=== PATIENT | female | born 1980 | race Caucasian/White ===

== ENCOUNTER 2017-08-08 00:43 | Emergency (ER) | payer OTHER, SELFPAY ==
[2017-08-08 00:44] VITALS: BP 121/81; PULSE 105; RESP 20; TEMP 37.7; O2SAT 98; BMI 36.3
--- NOTE | 2017-08-08 01:14 | CT_ITS ---
STUDY: CT ABDOMEN AND PELVIS WITHOUT CONTRAST REASON FOR EXAM: Female, 36 years old. LEFT flank pain RADIATION DOSAGE (If Supplied By Facility): CTDIvol = ( 16.52 ) mGy, DLP = ( 817.26 ) mGycm TECHNIQUE: Transaxial images were obtained from the dome of the diaphragm to the symphysis pubis without oral contrast, and without intravenous contrast. Sagittal and coronal images were reconstructed. Individualized dose optimization techniques were used for this CT. COMPARISON: None. FINDINGS: The visualized lung bases are unremarkable. The visualized portions of the heart are within normal limits. Normal liver. Normal gallbladder and extrahepatic biliary system. Normal spleen. Normal pancreas. Normal bilateral adrenal glands. Normal right kidney. There is mild LEFT hydronephrosis and hydroureter. NO stones are seen. A stone may have recently passed. The findings may also be due to urinary tract infection. Normal visualized stomach. Normal small intestine. Normal colon. The appendix is visualized and appears normal. Normal abdominal aorta. Normal inferior vena cava. Normal retroperitoneum. Normal urinary bladder. Uterus and ovaries are unremarkable. There is NO ascites, free air, abscess or adenopathy. Normal abdominal wall. Normal osseous structures. CT/Abdomen/Pelvis without Cont IMPRESSION: There is mild LEFT hydronephrosis and hydroureter. NO stones are seen. A stone may have recently passed. The findings may also be due to urinary tract infection. Normal visualized stomach. Normal small intestine. Normal colon. The appendix is visualized and appears normal. Uterus and ovaries are unremarkable. There is NO ascites, free air, abscess or adenopathy. Electronically Signed: Gary Kulkarni MD at 2:24 EDT , Service support ,
--- NOTE | 2017-08-08 01:17 | ED.VISSUMM ---
- ER Visit Summary Date of Service: 08/08/17 Chief Complaint: Left flank pain History of Present Illness: The patient is a 36 F left flank pain. It started intermittently yesterday and then became more severe today. Associated with chills and nausea. No dysuria or hematuria. She does have a history of kidney stones. Physical Examination: Afebrile and vital signs unremarkable except for a heart rate of 105. She appears uncomfortable but not toxic or in distress. Left CVA is tender and left flank is tender. No guarding or rebound. Skin appears normal. No other pertinent findings. Test Results: Blood work, urinalysis, and CT pending. Emergency Department Course and Treatment: Patient treated with fluids, morphine, and Zofran while awaiting results. Count 11.7. Metabolic panel normal. Urinalysis showed signs of infection. Culture is pending. test negative. CT showed mild left hydronephrosis with no stones. No other significant findings. Patient likely has pyelonephritis. She may have also passed a small stone recently. Cultures pending. She was given a dose of Rocephin. Will prescribe Cipro. We will also prescribe medicine for pain and nausea. No active meds on OARRS. Follow-up with primary care. I advised her that sometimes this condition can require hospitalization. If she does have new or worsening issues, she should return. Treatment Plan: As above Disposition: Discharged Impression: 1. Acute left pyelonephritis This note was generated with [employer] dictation software. It may contain incorrect words, spelling, and punctuation that were not noted in review of the chart prior to signing ED Disposition - Plan for ED Patient: Disposition: Home or Assisted Living Chief Complaint: Flank Pain Instructions: Discharge Instructions for Pyelonephritis Prescriptions: Oxycodone HCl/Acetaminophen [Percocet 5/325] 1 tab PO Q6H PRN PRN 3 Days #12 tab PRN Reason: Pain Ondansetron [Zofran Odt] 4 mg PO Q8H PRN PRN #10 tab PRN Reason: Nausea Ciprofloxacin [Cipro] 500 mg PO BID #20 tab Referrals: Dirk Navarro DO [Primary Care Provider] -
[2017-08-08] MEDS: Morphine 4 MG/ML Syringe IV (01:33)
[2017-08-08 01:34] LABS: Absolute Lymphocyte Count 2.26 X10^3/ul (0.83-4.51); Absolute Neutrophil Count 7.9 X10^3/uL (2.0-7.7); Basophil# 0.05 X10^3/uL; Basophil% 0.4 % (0-1); Eosinophils% 1.7 % (0-5); Hematocrit 41.2 % (37-47); Hemoglobin 13.5 g/dl (12.0-15.0); Lymphocyte # 2.26 X10^3/ul (4.0); Lymphocyte % 19.4 % (19-41); Mean Corp Hgb Conc 32.8 g/gl (32-36); Mean Corpuscular Hgb 29.3 pg (27.0-32.0); Mean Corpuscular Volume 89.4 fL (81-99); Monocyte# 1.18 X10^3/uL; Monocyte% 10.1 % (0-10); Neutrophil % 67.8 % (47-70); POSITIVE COUNT NO; POSITIVE DIFFERENTIAL NO; POSITIVE MORPHOLOGY NO; Platelet Count 269 K/mm3 (150-450); RBC Distribution Width CV 12.8 % (11.6-14.6); RBC Distribution Width SD 41.6 fl (35.1-43.9); Red Blood Count 4.61 M/mm3 (4.2-5.4); White Blood Count 11.7 K/mm3 (4.4-11.0)
[2017-08-08] MEDS: 0.9% Normal Saline 1,000 ML 250 ML IV (01:34)
[2017-08-08] MEDS: Ondansetron 4 MG/2 ML Vial IV (01:34)
[2017-08-08 01:48] LABS: Anion Gap 9 (5-15); BUN 8 mg/dL (7-18); BUN/Creat Ratio 9.7 RATIO (10-20); Calcium,Total 8.3 mg/dL (8.5-10.1); Chloride 105 mmol/L (98-107); Creatinine, Serum 0.83 mg/dL (0.55-1.02); EST Glomerular Filtration Rate 83 mL/min (>60); Est Glom Filt Rate - Afr Amer 100 mL/min (>60); Estimated Creatinine Clearance 77.51 ml/min; Glucose 106 mg/dL (74-106); Potassium 3.6 mmol/L (3.5-5.1); Sodium Level 138 mmol/L (136-145)
[2017-08-08 01:52] LABS: Pregnancy, Serum, hCG Quali. NEGATIVE Negative (0-9 Nonpreg)
[2017-08-08 01:56] LABS: Bacteria 0 SEEN /hpf (None Seen); Color, Urine Yellow (Yellow); Glucose, Dipstick Normal (Normal); Ketone-Dipstick Negative (Negative); Leukocyte Esterase-Dipstick 100 /ul (Negative); Nitrite-Dipstick Negative (Negative); Occult Blood-Urine 150 /ul (Negative); Protein-Dipstick 30 mg/dl (Negative); Urine Bilirubin Dipstick Negative (Negative); Urine Clarity Sl. Cloudy (Clear); Urine Urobilinogen 1 mg/dl (Normal)
[2017-08-08 02:01] LABS: Mucous, Urine 2+ /hpf (<or=2+); Red Blood Cells-Urine 5-10 SEEN /hpf (0-5); Squamous Epithelial Cells - UA 5-10 SEEN /hpf (5-10); White Blood Cells 10-25 SEEN /hpf (0-5)
--- NOTE | 2017-08-08 02:46 | ED.DEP ---
ED Disposition - Plan for ED Patient: Chief Complaint: Flank Pain Instructions: Discharge Instructions for Pyelonephritis Prescriptions: Oxycodone HCl/Acetaminophen [Percocet 5/325] 1 tab PO Q6H PRN PRN 3 Days #12 tab PRN Reason: Pain Ondansetron [Zofran Odt] 4 mg PO Q8H PRN PRN #10 tab PRN Reason: Nausea Ciprofloxacin [Cipro] 500 mg PO BID #20 tab Referrals: Dirk Navarro DO [Primary Care Provider] -
[2017-08-08] MEDS: Ceftriaxone 1 GM/50 ML BAG IV (02:56)
[2017-08-08] MEDS: HYDROcodone Bitartrate/Apap 5/325 Tablet PO (03:01)
[2017-08-08 03:45] VITALS: BP 104/56; PULSE 98; RESP 16; O2SAT 95
== END 2017-08-08 03:45 | disposition home or self-care (01) ==
PROVIDERS: Emergency Provider Emergency Medicine; Family Provider Family Medicine; PCP Family Medicine
DX: N10 Acute pyelonephritis (principal); N13.30 Unspecified hydronephrosis; Z87.442 Personal history of urinary calculi; Z72.0 Tobacco use
CPT/HCPCS: 74176; 80048; 81001; 84703; 85025; 87086; 87088; 87186; 96361; 96365; 96375; 99284; J7030; A4216; J2405

== ENCOUNTER → 2018-03-12 16:45 | Outpatient (CLI) | payer OTHER, SELFPAY ==
[2018-03-12 20:17] LABS: Chlamydia Trachomatis by PCR Negative (Negative); Neisserai gonorrhoeae by PCR Negative (Negative); Probe Check PASS; Sample Adequacy Control PASS; Specimen Processing Control PASS
[2018-03-16 12:12] LABS: HPV Reflexed? NOT INDICATED
== END ==
PROVIDERS: Visit Provider Obstetrics & Gynecology
DX: Z12.72 Encounter for screening for malignant neoplasm of vagina (principal); Z12.4 Encounter for screening for malignant neoplasm of cervix; Z11.3 Encounter for screening for infections with a predominantly sexual mode of transmission
CPT/HCPCS: 87491; 87591; 88175; G0145

== ENCOUNTER 2018-08-27 19:15 | Emergency (ER) | payer OTHER, SELFPAY ==
[2018-07-17 14:55] VITALS: BMI 26.2
[2018-08-27 19:15] VITALS: BP 127/82; PULSE 123; RESP 16; TEMP 36.3; O2SAT 98; BMI 26.3
--- NOTE | 2018-08-27 19:35 | ED.DCSUM_ITS ---
- ER Visit Summary Date of Service: 08/27/18 Chief Complaint: [Headache] History of Present Illness: The patient is a 37 F [presents the emergency department complaint of a headache that started around 8 AM. Patient states the headache came on gradually. She denies any falls or head injuries. He describes it as throbbing above her right eye. Patient had nausea but no vomiting. She denies any photophobia. She denies recent illness and has not had a fever. She denies urinary symptoms. Patient states she tried Tylenol at home without relief. She did not try ibuprofen because she has anaphylaxis type reaction with NSAIDs. Patient states that she is currently getting hormone therapy as she will be undergoing in vitro fertilization. Patient is wondering if the headache is unrelated to her hormones. She has had headaches in the past that were described as migraines but not for quite some time she states.] Physical Examination: [HEENT-PERRLA, EOMI. Cranial nerves II through XII grossly intact. TMs clear. Mucous membranes moist. No adenopathy. Cardiovascular-regular rate and rhythm without murmur or ectopy Lungs-clear to auscultation, chest wall stable without crepitus or subcu emphysema Abdomen-normoactive bowel sounds, soft, nontender, no rebound or rigidity, no peritoneal signs. Neuro fiql-vshkkf-ibes and uirz-ds-ybtk testing within normal limits, negative Romberg, negative , Fundi benign. Extremities-intact ?4, normal range of motion, normal pulses, atraumatic] Test Results: [CT scan of the brain without contrast was normal] Emergency Department Course and Treatment: [IV line established was given liter normal same fluid bolus as well as Reglan and Benadryl.] Patient did have some pain improvement and rates her pain now a 5 out of 10. Patient was given Nubain 10 mg IV and now she states her headaches significantly improved and feels she would like to go home. Treatment Plan: [Patient to follow-up with her primary care physician within next 3 to 5 days. Patient advised to drink plenty of fluids and sleep. Patient advised to return if worsening pain, difficulty with balance or speech, or condition should worsen anyway. ] Disposition: [Discharged home stable condition] Impression: [Cephalgia-resolved] This note was generated with [employer] dictation software. It may contain incorrect words, spelling, and punctuation that were not noted in review of the chart prior to signing ED Disposition - Plan for ED Patient: Referrals: Neymar Garnica MD [Primary Care Provider] -
[2018-08-27] MEDS: Metoclopramide 10 MG/2 ML Vial IV (19:48)
[2018-08-27] MEDS: DiphenhydrAMINE 50 MG/ML Syringe 25 MG IV (19:48)
[2018-08-27] MEDS: 0.9% Normal Saline 1,000 ML 1000 ML IV (19:48)
[2018-08-27] MEDS: Nalbuphine 10 MG/ML Ampul IV (21:07)
--- NOTE | 2018-08-27 21:08 | CT_ITS ---
STUDY: CT BRAIN WITHOUT CONTRAST REASON FOR EXAM: Female, 37 years old. Headache. RADIATION DOSAGE (If Supplied By Facility): CTDIvol = ( 44.99 ) mGy, DLP = ( 711.75 ) mGycm TECHNIQUE: Transaxial CT imaging of the brain was performed without administration of intravenous contrast material. Multiplanar reformations are submitted for interpretation. Individualized dose optimization techniques were used for this CT. COMPARISON: No relevant priors. FINDINGS: Normal soft tissue structures. Normal calvarium. Normal size ventricles and extra-axial spaces for the patient's age. Normal white matter tracts of the cerebral hemispheres. Normal basal ganglia and thalami. Normal brainstem. Normal cerebellum. There is no intracranial hemorrhage. There are no findings of an acute ischemic infarction. Normal visualized paranasal sinuses. CT/Brain/Head without Contrast IMPRESSION: Normal unenhanced CT scan of the brain. Electronically Signed: Fidelina Kitchen MD at 21:42 EDT , Service support ,
[2018-08-27 21:15] VITALS: BP 120/78; PULSE 91; RESP 15; O2SAT 96
--- NOTE | 2018-08-27 22:49 | ED.DEP ---
ED Disposition - Plan for ED Patient: Instructions: ED Cephalgia Unspecified Referrals: Neymar Garnica MD [Primary Care Provider] - 3-5 Days
[2018-08-27 22:54] VITALS: BP 108/62; PULSE 87; RESP 18; O2SAT 96
== END 2018-08-27 22:56 | disposition home or self-care (01) ==
LOC: ED 19:28
PROVIDERS: Emergency Provider Emergency Medicine; Family Provider Family Medicine; PCP Family Medicine
DX: R51 Headache (principal); Z72.0 Tobacco use; R11.0 Nausea
CPT/HCPCS: 70450; 96361; 96374; 96375; 99283; J7030

== ENCOUNTER 2018-12-04 08:48 | Emergency (ER) | payer OTHER, SELFPAY ==
[2018-08-30 15:25] VITALS: BMI 26.3
[2018-12-04 08:50] VITALS: BP 121/85; PULSE 106; RESP 20; TEMP 36.6; O2SAT 99; BMI 27.4
--- NOTE | 2018-12-04 09:13 | ED.DCSUM_ITS ---
- ER Visit Summary Date of Service: 12/04/18 Chief Complaint: Right axillary abscesses History of Present Illness: The patient is a 38 F history of hydratiform suppurativa complaining of abscesses in the right axilla. Approximately 1 week. Denies any fever. No other complaints. Physical Examination: Middle-aged female no acute distress vital signs stable afebrile. HEENT exam unremarkable. Neck nontender. No lymphadenopathy. Lungs clear to auscultation. Heart regular rate and rhythm no murmur. Abdomen soft nontender. Remedies moving all 4. Neurovascular intact. Her right armpit has several areas of red indurated skin consistent with early abscesses. There is no fluctuance. Currently there is no pus. There is no surrounding cellulitis. Test Results: None Emergency Department Course and Treatment: Patient I discussed options. At this time is doing nothing to drain these are flat indurated areas of tissue but there is no fluctuant or pus pocket. She understands at this time draining would just cause us to believe that she knows return if they get significant bit bigger to be incised and drained. Treatment Plan: Bactrim and Keflex for 10 days. Warm soaks. And all for pain. Disposition: Discharge Impression: Acute bilateral flank abscesses secondary to hydratiform suppurativa This note was generated with [employer] dictation software. It may contain incorrect words, spelling, and punctuation that were not noted in review of the chart prior to signing ED Disposition - Plan for ED Patient: Referrals: Neymar Garnica MD [Primary Care Provider] -
[2018-12-04] MEDS: HYDROcodone Bitartrate/Apap 5/325 Tablet PO (09:16)
--- NOTE | 2018-12-04 09:16 | ED.DEP ---
ED Disposition - Plan for ED Patient: Disposition: Home or Assisted Living Instructions: ABSCESS, Antiobiotic Treatment Only Prescriptions: Smz/Tmp Ds [Bactrim Ds] 1 tab PO BID #20 tab Prescription Printed Cephalexin [Keflex] 500 mg PO Q6 #40 cap Prescription Printed Referrals: Neymar Garnica MD [STAFF PHYSICIAN] - 3-5 Days if not improving Additional Instructions: Warm compresses and hot shower to right armpit. Tylenol for pain. Keflex and Bactrim antibiotics for the next 10 days the Bactrim will be 1 pill twice a day and the Keflex 1 pill 4 times a day. If the abscess is getting larger they may need to be drained.
[2018-12-04] MEDS: Cephalexin 250 MG Capsule 500 MG PO (09:26)
== END 2018-12-04 09:34 | disposition home or self-care (01) ==
PROVIDERS: Emergency Provider Emergency Medicine; Family Provider Family Medicine; PCP Family Medicine
DX: L02.211 Cutaneous abscess of abdominal wall (principal); Z72.0 Tobacco use
CPT/HCPCS: 99283

== ENCOUNTER 2019-02-28 05:30 | Day surgery (SDC) | payer OTHER, SELFPAY ==
--- NOTE | 2019-02-12 02:23 | HP_ITS ---
Intake Vital Signs 02/12/19 Body Mass Index (BMI) 27.4 Intake Visit Reasons: F/U Hemorrhoids would like to discuss surgery Chief Complaint: Bilateral ear pain Drying Machine Back Tender Required: No Is patient in pain?: No Allergies ibuprofen Allergy (Verified 02/12/19 14:07) Anaphylaxis Latex, Natural Rubber Allergy (Verified 02/12/19 14:07) Swelling venom-honey bee [bee venom (honey bee)] Allergy (Verified 02/12/19 14:07) Hives Medications amoxicillin 875 mg-potassium clavulanate 125 mg tablet 1 tab PO Q12H 10 Days #20 tab 02/07/19 [Rx Confirmed 02/12/19] PFSH Medical History Hemorrhoids (Acute) Hx of pancreatitis (Acute) Acid reflux (Acute) Constipation (Acute) Abdominal pain (Acute) Fatty liver disease, nonalcoholic (Chronic) Obesity (BMI 30-39.9) (Chronic) Surgical History Hx of colonoscopy (Acute) History of esophagogastroduodenoscopy (EGD) (Acute) Hx of wisdom tooth extraction (Acute) History of loop electrical excision procedure (LEEP) (Acute) Hx of hand surgery (Acute) History of tonsillectomy and adenoidectomy (Acute) Family History Mother Diabetes High cholesterol Thyroid disorder Father High cholesterol Hypertension Social History (Updated 02/12/19 @ 14:23 by Josselin Dumont MD) Smoking Status: Current every day smoker second hand exposure: Yes alcohol intake: current alcohol intake frequency: a few times a month substance use type: does not use caffeine: Yes frequency: 1-2 times per week HPI HPI HPI: AISHA HEARN, is a 38 F who presents to the office today for HPI HPI Surgical H&P: Yes HPI: AISHA HEARN, is a 38 F who presents to the office today for follow-up for hemorrhoids. Patient was seen in June due to hemorrhoids. Patient states that her pain more recently has been getting worse and it can be more aggravated just with sitting as well. Patient describes as a pinching feeling. Patient rates the pain a 7/10 when she has it. Patient states she does have daily bowel much which are soft she has increased her fiber in her diet. Patient did have a colonoscopy in 2011 which was negative per pt. Exam Const General: cooperative, comfortable, no acute distress Resp Effort & Inspection: normal respiratory effort Cardio Rate: regular rate GI Inspection: non-distended Palpation: soft, no guarding, nontender Other: ALEXIA: External hemorrhoid at 5:00 covered with keratinized tissue due to the external exposure with a small internal component. No masses appreciated on ALEXIA or gross blood. Assessment & Plan Problems 1. Hemorrhoids K64.9 Plan Patient does have an external hemorrhoid about 5:00 which is been causing her more discomfort she is interested in an hemorrhoidectomy. Did discuss the procedure of a hemorrhoidectomy with the patient including but not limited risk of bleeding, infection, anesthesia, urinary retention, developing additional hemorrhoids, etc. Also discussed with patient that this can be a painful procedure postoperatively she will be needing pain meds and need to try to keep her bowel movements soft-using stool softeners and/or occasional MiraLAX, recommend sitz baths as well. Patient had no further questions this time was agreeable to schedule for hemorrhoidectomy. Josselin Dumont M.D. Pager: [phone] [facility] [address] [place] [address], [facility], [address] [place] [address] Office: [phone] Plan Detail Follow Up We will schedule hemorrhoidectomy Coding Level of Care Code Off vis,est,level 3 Diagnoses Hemorrhoids K64.9 02/12/19 1423 <Electronically signed by Josselin Roberts am, MD> Date _ Josselin Dumont MD I have re-examined the patient. There are no clinical changes since date of exam.
[2019-02-12 14:07] VITALS: BMI 27.4
[2019-02-28] VITALS (7 sets, daily range): BP systolic 106–145; BP diastolic 65–110; PULSE 64–91; RESP 16; TEMP 36.1–36.5; O2SAT 99–100; BMI 28.3
--- NOTE | 2019-02-28 | IMM_PTH ---
PATIENT: AISHA HEARN LOC: [facility] U#:[id number] AGE/SX: 38/F ROOM: RE02/28/[address]: Dr. Josselin Dumont MD : 1980 BED: DIS: 02/28/2019 SPEC #: [id number] RECD: 03/03/19 10:24 STATUS: SUKHDEV REQ #: [id number] JUNIOR: 02/28/19 00:[address]: Josselin Dumont DEPT: IMMUNOHISTOCHEMISTRY RECD BY: Leonila Weller ENTERED: 03/03/19 10:24 SP TYPE: IMMUNO OTHR DR: Dr. Dirk Navarro DO Tissues: HEMORRHOIDS Procedures: p16 (initial) KI-67 (add) PHYSICIAN & INSTITUTION [place] [address] SPECIMEN INFORMATION: Tissue Source: Hemorrhoids Clinical Info: Hemorrhoids Specimen Number: [id number] CPT code: 35395, 90669 METHODOLOGY: Deparaffinized sections of prefer/formalin-fixed tissue or PAP/DQ stained slides are incubated with monoclonal/polyclonal antibodies/oligonucleotide probes. Localization is made via biotin free immunoperoxidase method. Appropriate controls are performed and reacted as expected. Results on target cell population are indicated in the following table: RESULTS: ANTIBODY / CLONE RESULT P16 (E6H4) positive block staining Ki-67 (30-9) positive, high These tests were developed and their performance characteristics determined by [facility]. They may not have been cleared or approved by the U.S. Food and Drug Administration. The FDA has determined that such clearance or approval is not necessary. The above immunohistochemical/dualISH markers are ordered and reviewed by the Pathologist. INTERPRETATION: Hemorrhoids, hemorrhoidectomy: Consistent with moderate to severe squamous dysplasia. FRANDY:sulema 03/03/19
[2019-02-28 05:49] LABS: Internal QC Validated? YES +Cl - CLEAR BKGD
[2019-02-28 05:52] LABS: Pregnancy, Urine Negative Negative
[2019-02-28] MEDS: Lactated Ringers 1,000 ML 100 ML IV ×2 (06:05→09:03)
--- NOTE | 2019-02-28 07:30 | HEM_PTH ---
PATIENT: AISHA HEARN LOC: [facility] U#:[id number] AGE/SX: 38/F ROOM: RE02/28/[address]: Dr. Josselin Dumont MD : 1980 BED: DIS: 02/28/2019 SPEC #: [id number] RECD: 02/28/19 12:15 STATUS: SUKHDEV SUZANNA #: [id number] JUNIOR: 02/28/19 07:[address]: Josselin Dumont DEPT: SURGICAL PATHOLOGY RECD BY: [address] ENTERED: 02/28/19 13:19 SP TYPE: HEMORRHOID OTHR DR: Dr. 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 See comment. 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 Resection margins are free of dysplastic changes. Immunohistochemistry ([id number]) for surrogate HPV marker (p16) supports the above diagnosis. This case is discussed with Dr. Dumont on 02/28/19. Case has been reviewed in consultation with Dr. Lezama who concurs with the above diagnosis. IDC:AM MICROSCOPIC DESCRIPTION Slides are reviewed. GROSS DESCRIPTION Received in fixative is one container labeled with the patient's name and designated hemorrhoids. The specimen consists of a polypoid piece of soto-white skin measuring 1.5 x 1.5 x 0.5 cm. The specimen is inked, bisected and submitted entirely in one cassette. / SJ:sulema 02/28/19 TC:5 CPT: 57647
[2019-02-28] MEDS: Lubricating Jelly 60 GM Tube 30 GM TOPICAL (07:50)
[2019-02-28] MEDS: Dibucaine 30 GM Tube 1 APPLIC (07:59)
[2019-02-28] MEDS: Bupivacaine Mpf 0.5% 30 ML VIAL (08:00)
--- NOTE | 2019-02-28 08:02 | PCM.OPRPT ---
Report of Operation Date of Procedure: 02/28/19 Pre-Operative Diagnosis: External hemorrhoid Post-Operative Diagnosis: Same Surgery/Procedure Performed:: Hemorrhoidectomy Type of Anesthesia:: General/Supplemental Anesthesiologist: Jeffrey Hardin Specimen's removed: Hemorrhoid Estimated Blood Loss (mL): <10 cc Fluids Replaced: 700 cc Description of Procedure: The patient was brought into the operating room and general anesthesia was induced. She was placed in prone jackknife lithotomy position. A timeout was completed verifying correct patient, procedure, site, position, and special equipment prior to beginning the procedure. The buttocks were taped apart. Perineum was prepared prepped and draped in standard sterile fashion. Local anesthesia was injected as a perianal nerve block-0.5% Marcaine mixture with lidocaine 1% with epi, total local used throughout the case was 25 cc. Anus carefully dilated. Small Hill-Cardoza retractor was introduced and 3 marginal pedicles identified. She was noted to have internal and external hemorrhoids at the right anterior location ( about 5:00). 2-0 Vicryl suture was placed at the base of the pedicle and retracted externally to exteriorize the hemorrhoidal pedicle. An elliptical incision was made extending from perianal skin to anal rectal ring including both internal and external hemorrhoids and excising a minimal amount of anoderm. Cautery was used to separate the hemorrhoid from the underlying tissue. Careful not to involve any of the sphincter muscle. The pedicle was excised from the base and sent to pathology. Hemostasis was achieved using electrocautery. Following the hemostasis the skin and mucosal incisions were closed with the running lock stitch of 2-0 chromic. A Surgifoam with dibucaine was placed in the anus. A gauze pad tucked between the gluteal folds. The patient tolerated procedure well and was extubated and taken to the postanesthesia care unit in stable condition. - Complications none
--- NOTE | 2019-02-28 08:05 | DCINST_ITS ---
Discharge Diet: No Restrictions Discharge Activity: May not drive while taking narcotic pain medications. Lifting Restrictions: No lifting greater than 20 pounds x 2 weeks Additional Activity Instructions:: Avoid any straining on the toilet do not have to have a bowel movement get off the toilet, avoid the donut pillow try to sit more on one side of your glutes Call your doctor if your incision/area has: Continuous Slow Oozing, Sudden Increased Bleeding, Increased Pain/ Swelling, Increased Redness, Foul Smelling Discharge, Swelling at the incision site Call your doctor if you observe: Fever of 101 or Higher Additional Instructions: Okay to take Tylenol up to 1000 mg PO q6hr PRN along with the OxyIR. Take all pain meds with food. OxyIR can cause constipation recommend taking daily stool softener (i.e. Colace/docusate) while taking the pain meds. Recommend starting some MiraLAX in 1 to 2 days if no bowel movement. If still no bowel movement following day recommend taking magnesium citrate half the bottle and waiting 4-6 hours if still no results take the other half the bottle. Allergies/Adverse Reactions: Allergies ibuprofen Allergy (Verified 02/28/19 05:51) Anaphylaxis Latex, Natural Rubber Allergy (Verified 02/28/19 05:51) Swelling venom-honey bee [bee venom (honey bee)] Allergy (Verified 02/28/19 05:51) Hives Medications to take at Discharge Multivitamins,Therapeutic [Multivitamin] 1 tab PO DAILY 02/21/19 The following prescriptions were given: Oxycodone [Oxyir] 5 - 10 mg PO Q6H PRN PRN 6 Days #40 tablet PRN Reason: Pain Score 6-10/10 Transmission Status: Sent to [facility] Orders to be completed after discharge: ,Urine Time Frame: 02/28/19, Facility: [facility], Location: Laboratory Primary Care Physician: Dirk Navarro DO [Primary Care Provider] - Test Results: Test results from this visit will be discussed in further detail at your follow- up appointment, if applicable. Please Follow Up With: Josselin Dumont MD - After 5:00 PM on weekends call [phone] with any concerns When: Call the office for follow-up in 3 weeks Proposed Discharge Date: 02/28/19
== END 2019-02-28 10:03 | disposition home or self-care (01) ==
LOC: SDC 05:31 → AC 05:32
PROVIDERS: Anesthesiology; Family Provider Family Medicine; PCP Family Medicine; Referring Provider Surgery; Visit Provider Surgery
PROC: (CPT 46260; principal; 2019-02-28 07:15)
DX: K64.4 Residual hemorrhoidal skin tags (principal); K64.9 Unspecified hemorrhoids; F17.200 Nicotine dependence, unspecified, uncomplicated; Z91.040 Latex allergy status; K76.0 Fatty (change of) liver, not elsewhere classified; F12.90 Cannabis use, unspecified, uncomplicated
CPT/HCPCS: 00902; 46260; 81025; 88304; 88341; 88342; J7120; J2405

== ENCOUNTER 2019-08-06 19:15 | Emergency (ER) | payer OTHER, SELFPAY ==
[2019-07-31 17:11] VITALS: BMI 28.3
[2019-08-06 19:15] VITALS: BP 159/97; PULSE 110; RESP 18; TEMP 36.8; O2SAT 100; BMI 28.8
--- NOTE | 2019-08-06 19:51 | ED.DCSUM_ITS ---
History of Present Illness Chief Complaint: Complaint Detail of Chief Complaint: dysuria w/ back pain Informant: Patient Onset: Weeks - 1 Context: Gradual Onset Timing: Continuous Quality: achy Location: bilat low back Current Severity: Moderate Maximum Severity: Moderate Worsened by: nothing Relieved by: tylenol some Associated Symptoms: fever, dysuria, sore throat, right earach Narrative: Patient presents saying she had dysuria, frequency, suprapubic discomfort a week ago and was seen at the [facility] urgent care, prescribed nitrofurantoin that she recently finished, took care of the symptoms but upon day that she took the last dose, symptoms returned and then started also aching/radiating into her low back bilaterally. Some nausea occasionally but no vomiting. No fevers until yesterday, and additionally developed a sore throat and a right earache. She denies any dyspnea. Not really coughing. No headaches or myalgias. 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 - Past Medical History (1) Acid reflux Status: Chronic (2) Hemorrhoids Status: Suspected (3) Hx of pancreatitis Status: Resolved (4) Sciatica Status: Suspected (5) Fatty liver disease, nonalcoholic Status: Chronic Past Medical History - Allergies and Home Meds Allergies/Adverse Reactions: Allergies ibuprofen Allergy (Verified 08/06/19 19:18) Anaphylaxis Latex, Natural Rubber Allergy (Verified 08/06/19 19:18) Swelling venom-honey bee [bee venom (honey bee)] Allergy (Verified 08/06/19 19:18) Hives Primary Care Physician: Dirk Navarro DO [Primary Care Provider] - Surgical History: tonsillectomy, - - R hand tendon repair, LEEP. Smoking Status: Current every day smoker Drugs: None - Family History Maternal Family History: Family History (Last Reviewed 07/31/19 @ 17:06 by Maylin Mojica) Mother Diabetes High cholesterol Thyroid disorder Father High cholesterol Hypertension Family History: Reports: Diabetes, Hypertension Paternal Family History: Family History (Last Reviewed 07/31/19 @ 17:06 by Maylin Mojica) Mother Diabetes High cholesterol Thyroid disorder Father High cholesterol Hypertension Family History: Reports: Hypertension Review of Systems General: Reports: Fever, Malaise. Denies: Chills, Sweats Eyes: Denies: Visual changes - bilaterally, Diplopia ENT: Reports: Right ear pain, Sore throat. Denies: Rhinorrhea Cardiovascular: Denies: Chest pain, Palpitations Respiratory: Denies: Dyspnea, Cough, Dyspnea on exertion Gastrointestinal: Reports: Abdominal pain, Nausea. Denies: Vomiting, Diarrhea, Melena, Hematochezia Genitourinary: Reports: Dysuria, Hematuria - Trace amount of blood when she wipes only. No gross hematuria when urinating., Frequency, - - No urinary retention. Musculoskeletal: Reports: Back pain. Denies: Neck pain, Extremity Pain Skin: Denies: Rash, Wounds Neurological: Denies: Headache, Weakness, Numbness Physical Exam Vital Signs/Narrative: Vital Signs Temp Pulse Resp BP Pulse Ox 08/06/19 19:15 98.3 F 110 H 18 159/97 H 100 Inital Vital Signs reviewed: Yes General: Well nourished, Well developed, No Acute Distress - Well-appearing, no distress Head: Normocephalic, Atraumatic Eyes: Perrl, EOMI ENT: Moist mucous membranes, No rhinorrhea, - - Posterior oropharynx mildly erythematous. No exudates. No asymmetry or swelling. No trismus. Tonsils absent. Neck: Supple, Nontender, No lymphadenopathy Cardiovascular: Regular rate, Regular rhythm, No murmurs Respiratory: No distress, CTA bilaterally, Chest nontender Abdomen: Soft, Nondistended, Normal bowel sounds, No masses, Tender - Mild suprapubic only. Negative for: Guarding, Rebound tenderness Back: Nontender, Normal Inspection. Negative for: CVA tenderness Extremities: Nontender, No edema Skin: Normal color, No rash, No Trauma Neurological: Alert, Oriented x3, Cranial nerves II-XII grossly intact, Normal Strength, Normal Sensation, Normal Gait Psychological: Normal affect, Normal Mood Diagnostic/Tx/Re-eval Laboratory Tests 08/06/19 08/06/19 Range/Units 19:25 19:25 Urine Color Yellow (Yellow) Urine Clarity Sl. Cloudy (Clear) Urine pH 7.0 (5.0 - 8.0) Ur Specific [place] 1.015 (1.002-1.030) Urine Protein 30 H (Negative) mg/dl Urine Glucose (UA) Normal (Normal) mg/dl Urine Ketones Negative (Negative) mg/dl Urine Occult Blood 150 H (Negative) /ul Urine Nitrite Positive H (Negative) Urine Bilirubin Negative (Negative) mg/dL Urine Urobilinogen Normal (Normal) mg/dl Ur Leukocyte Esterase 500 H (Negative) /ul Urine RBC 25-50 SEEN (0-5) /hpf Urine WBC 50-100 SEEN (0-5) /hpf Ur Squamous Epith Cells 5-10 SEEN (5-10) /hpf Amorphous Sediment 1+ PHOS Urine Bacteria 2+ (None Seen) /hpf Urine Mucus 0 SEEN (<or=2+) /hpf Urine Test Negative Negative - Medical Decision Making Urinalysis is consistent with infection. This was sent for culture. Her is negative. Given clinical exam and symptoms, she does not have pyelonephritis at this time. But since she possibly failed nitrofurantoin, will place her on Bactrim which she is not allergic to, and advised that she follow- up. She is comfortable with that plan is also given Azo for her symptoms. With regards to her respiratory symptoms, as I discussed with her, patient does not have known COVID-19 exposure and is not critically ill or clinically septic, has not traveled to/from a region with a CDC level 2 or 3 travel health notice, vital signs are stable without hypoxia, is not ill enough to require admission to the hospital, and at this time does not meet current [facility] requirements for testing for COVID-19 but has symptoms that may be compatible with coronavirus infection and we are not able to rule that out. She was given appropriate quarantine discharge instructions regarding this possibility and reasons to return to the ER. ED Disposition - Plan for ED Patient: Disposition: Home or Assisted Living Diagnosis: Viral URI, Acute cystitis Instructions: ED CYSTITIS Female Adult, ED URI Viral Prescriptions: Smz/Tmp Ds [Bactrim Ds] 1 tab PO BID #14 tab Transmission Status: Pending to [facility]30 Referrals: Dirk Navarro DO [Primary Care Provider] - 1 Week if not improving Additional Instructions: -See additional attached quarantine instructions for what to do with regards to the possibility of coronavirus infection, given that you do not currently meet the [facility] requirements for testing since they require us to conserve the limited testing ability for the sickest, hospitalized patients.
[2019-08-06 19:56] LABS: Mucous, Urine 0 SEEN /hpf (<or=2+)
[2019-08-06 20:11] LABS: Internal QC Validated? YES +Cl - CLEAR BKGD; Pregnancy, Urine Negative Negative
[2019-08-06 20:18] LABS: Color, Urine Yellow (Yellow); Glucose, Dipstick Normal (Normal); Ketone-Dipstick Negative (Negative); Leukocyte Esterase-Dipstick 500 /ul (Negative); Nitrite-Dipstick Positive (Negative); Occult Blood-Urine 150 /ul (Negative); Protein-Dipstick 30 mg/dl (Negative); Specific Gravity, Urine 1.015 (1.002-1.030); Urine Bilirubin Dipstick Negative (Negative); Urine Clarity Sl. Cloudy (Clear); Urine Urobilinogen Normal (Normal)
[2019-08-06 21:04] LABS: White Blood Cells 50-100 SEEN /hpf (0-5)
[2019-08-06 21:05] LABS: Amorphous Sediment 1+ PHOS; Bacteria 2+ /hpf (None Seen); Red Blood Cells-Urine 25-50 SEEN /hpf (0-5); Squamous Epithelial Cells - UA 5-10 SEEN /hpf (5-10)
[2019-08-06] MEDS: Smz/Tmp Ds Tablet 1 TABLET PO (21:33)
[2019-08-06] MEDS: Phenazopyridine 95 MG Tablet 190 MG PO (21:33)
[2019-08-06 21:36] VITALS: PULSE 86; RESP 16; O2SAT 100
== END 2019-08-06 21:38 | disposition home or self-care (01) ==
PROVIDERS: Emergency Provider Emergency Medicine; PCP Family Medicine
DX: J06.9 Acute upper respiratory infection, unspecified (principal); N30.00 Acute cystitis without hematuria; K21.9 Gastro-esophageal reflux disease without esophagitis; K76.0 Fatty (change of) liver, not elsewhere classified; Z87.19 Personal history of other diseases of the digestive system; F17.200 Nicotine dependence, unspecified, uncomplicated; Z82.49 Family history of ischemic heart disease and other diseases of the circulatory system; Z91.040 Latex allergy status
CPT/HCPCS: 81001; 81025; 87086; 87088; 87186; 99284; A4216

== ENCOUNTER 2019-12-15 15:52 | Emergency (ER) | payer OTHER, SELFPAY ==
[2019-12-15 15:52] VITALS: BP 151/102; PULSE 99; RESP 16; TEMP 36.3; O2SAT 100; BMI 30.1
--- NOTE | 2019-12-15 16:10 | ED.VIS.GEN ---
History of Present Illness Chief Complaint: Lower Extremity Injury Informant: Patient Narrative: 39-year-old female presenting with pain in the back of her right knee for the last couple of days. She denies any trauma. She states that she is ambulatory but it does hurt. She does not have any numbness or tingling. Is no personal history of DVT/PE. She has no risk factors for it other than she states her family has a history of this. Not know of a specific clotting disorder. Denies any chest pain, palpitations, shortness of breath. - Past Medical History (1) History of esophagogastroduodenoscopy (EGD) Status: Acute (2) History of loop electrical excision procedure (LEEP) Status: Acute (3) History of tonsillectomy and adenoidectomy Status: Acute Past Medical History - Allergies and Home Meds Allergies/Adverse Reactions: Allergies ibuprofen Allergy (Verified 08/06/19 19:18) Anaphylaxis Latex, Natural Rubber Allergy (Verified 08/06/19 19:18) Swelling venom-honey bee [bee venom (honey bee)] Allergy (Verified 08/06/19 19:18) Hives Primary Care Physician: Dirk Navarro DO [Primary Care Provider] - Prior records reviewed: Yes Past Medical History: - - Reviewed Surgical History: tonsillectomy, - - R hand tendon repair, LEEP. Lives: With Family Smoking Status: Current every day smoker Alcohol: None Drugs: None - Family History Maternal Family History: Family History (Last Reviewed 07/31/19 @ 17:06 by Maylin Mojica) Mother Diabetes High cholesterol Thyroid disorder Father High cholesterol Hypertension Family History: Reports: Diabetes, Hypertension Paternal Family History: Family History (Last Reviewed 07/31/19 @ 17:06 by Maylin Mojica) Mother Diabetes High cholesterol Thyroid disorder Father High cholesterol Hypertension Family History: Reports: Hypertension Review of Systems General: Denies: Chills, Fever, Sweats Eyes: Denies: Visual changes - bilaterally, Diplopia ENT: Denies: Rhinorrhea, Sore throat Cardiovascular: Denies: Chest pain, Palpitations Respiratory: Denies: Dyspnea, Cough, Dyspnea on exertion Gastrointestinal: Denies: Abdominal pain, Nausea, Vomiting, Diarrhea, Melena, Hematochezia Genitourinary: Denies: Dysuria, Hematuria, Frequency Musculoskeletal: Reports: Back pain, Extremity Pain - Pain behind right knee. Skin: Denies: Rash, Wounds Neurological: Denies: Headache, Weakness, Numbness Physical Exam Vital Signs/Narrative: Vital Signs Temp Pulse Resp BP Pulse Ox 12/15/19 15:52 97.4 F L 99 16 151/102 H 100 Inital Vital Signs reviewed: Yes General: Well nourished, Well developed Head: Normocephalic Cardiovascular: Regular rate, Regular rhythm Respiratory: Negative for: Wheezing, Diminished Back: Nontender Extremities: Tenderness - Tenderness to palpation posterior to the right knee. The right calf Olivera's are soft. Diagnostic/Tx/Re-eval - Medical Decision Making 39-year-old female presenting for pain behind the right knee for the last couple of days. She is concerned about blood clot because he has a family history of this. She has never had a blood clot. She has no other DVT/PE risk factors. She denies any traumatic injury. Patient was given a [place] for pain on arrival as she is not driving. I did obtain a right lower extremity duplex ultrasound which was negative. She does not have any bony tenderness and I do not believe she needs an x-ray. Patient is counseled on ice and NSAIDs as well as compression. Patient is given return precautions. Impression: 1. Right posterior knee pain ED Disposition - Plan for ED Patient: Disposition: Home or Assisted Living Instructions: ED Knee Pain [facility] Referrals: iDrk Navarro DO [Primary Care Provider] -
--- NOTE | 2019-12-15 16:14 | VDLE_ITS ---
Reason For Study: Pain RIGHT LEFT GSV is normal. CFV is compressible, spontaneous, phasic, CFV is compressible, spontaneous, phasic, competent, and demonstrates normal competent and demonstrates normal augmentation. augmentation. FV is compressible, spontaneous, phasic, competent and demonstrates normal augmentation. POP V is compressible, spontaneous, phasic, competent and demonstrates normal augmentation. T/P Trunk is compressible. PTV is compressible. RT PerV is compressible. Procedure Exam performed portable in ED. A preliminary report was called and/or faxed to Dr. Wong. Interpretation Summary There is no evidence of right lower extremity deep vein thrombosis. Right great saphenous vein appears patent and compressible segmentally. Normal flow patterns left common femoral vein Ordering Physician: Mario Wong Referring Physician: Dirk Navarro Performed By: Kalyani Alvarado, TATIANA, RVT
[2019-12-15] MEDS: HYDROcodone Bitartrate/Apap 5/325 Tablet PO (16:28)
== END 2019-12-15 17:12 | disposition home or self-care (01) ==
PROVIDERS: Emergency Provider Student in an Organized Health Care Education/Training Program; PCP Family Medicine
DX: M25.561 Pain in right knee (principal); F17.200 Nicotine dependence, unspecified, uncomplicated; Z82.49 Family history of ischemic heart disease and other diseases of the circulatory system; Z91.040 Latex allergy status; M54.9 Dorsalgia, unspecified
CPT/HCPCS: 93971; 99283

== ENCOUNTER 2020-03-08 14:04 | Emergency (ER) | payer OTHER, SELFPAY ==
[2020-01-22 17:21] VITALS: BMI 30.1
[2020-03-08 14:04] VITALS: BP 145/92; PULSE 102; RESP 22; TEMP 36.2; BMI 31.1
--- NOTE | 2020-03-08 15:51 | ED.RN ---
PT LEFT WITHOUT BEING SEEN
== END 2020-03-08 15:51 | disposition left against medical advice (07) ==
LOC: ED 15:54
PROVIDERS: Emergency Provider Emergency Medicine; PCP Family Medicine
DX: T14.8XXA Other injury of unspecified body region, initial encounter (principal)

== ENCOUNTER → 2024-07-23 | Outpatient (CLI) | payer MEDICAID, SELFPAY ==
--- NOTE | 2024-07-23 11:01 | CDU_ITS ---
Reason For Study Reason For Study: Cerebral infarction Rt. Velocities/BP Lt. Velocities/BP Prox CCA 102.3/31.1 cm/sec. Prox CCA 64.6/9.3 cm/sec. Mid CCA 81.4/28.6 cm/sec. Mid CCA 50.1/9.5 cm/sec. Dist CCA 76.5/32.3 cm/sec. Dist CCA 28.9/9.1 cm/sec. Prox ICA 86.1/32.2 cm/sec. Prox ICA 0.0 cm/sec. Mid ICA 76.2/39.9 cm/sec. Mid ICA 0.0 cm/sec. Dist ICA 83.9/40.9 cm/sec. Dist ICA 0.0 cm/sec. Rt. ICA/CCA = 1.1. Lt. ICA/CCA = 0.0. Prox ECA 67.4/15.4 cm/sec. Prox ECA 88.6/27.0 cm/sec. Rt. Vert. 48.6/10.6 cm/sec. Lt. Vert. 52.5/18.5 cm/sec. Right Extracranial There is intimal thickening but no significant atherosclerotic plaque noted in the right common carotid artery. There is intimal thickening but no significant atherosclerotic plaque noted in the right internal carotid artery. There is intimal thickening but no significant atherosclerotic plaque noted in the right external carotid artery. Antegrade flow is noted in the right vertebral artery. Left Extracranial There is intimal thickening but no significant atherosclerotic plaque noted in the left common carotid artery. There is homogeneous, irregular atherosclerotic plaque noted in the left internal carotid artery. The left internal carotid artery is occluded. There is intimal thickening but no significant atherosclerotic plaque noted in the left external carotid artery. Antegrade flow is noted in the left vertebral artery. Procedure Carotid Duplex [id number]. This is a Carotid Duplex examination using B-mode, color flow and specral Doppler. Exam performed in department. Preliminary report left on voicemail on nurse's line at [facility]. VL/Carotid Duplex Ultrasound Interpretation Summary Normal right extracranial internal carotid. Occlusion of the left extracranial internal carotid. Patent and antegrade vertebrals bilaterally. Ordering Physician: Tiffani Gtz Referring Physician: Tiffani Gtz Performed By: Birdie Howard RVT
== END | disposition home or self-care (01) ==
PROVIDERS: PCP Family Medicine
DX: I63.9 Cerebral infarction, unspecified (principal)
CPT/HCPCS: 93880

== ENCOUNTER 2024-09-11 09:00 | Outpatient (RCR) | payer MEDICAID, SELFPAY ==
--- NOTE | 2024-07-10 13:57 | HP.SP.EVAL ---
Visit History Visit Info Date of Eval: 07/10/24 Visit: 1 Patient's Approved Number of Visits: 30 Insurance Date Limit: 04/29/25 Information Security Architect: MONIQUE Rodgers Attending Doctor: JUSTIN Referring Doctor: JUSTIN Reason for Referral: EXPRESSIVE APHASIA. RX HERE Medical Diagnosis: Left MCA CVA Date of Onset of Diagnosis: 06/14/24 Previous speech therapy: No Other Relevant Medical History/Diagnoses/Surgery: AISHA HEARN is a 43 year old female who presents to [facility] for an evaluation for expressive aphasia. She had a Left MCA CVA on 06/14/24. Started experiencing symptoms on 06/14 but did not go to the hospital until 06/16 when her mom took her. She describes her main symptoms were word finding. She did not experience any paralysis. She initially went to [facility] in [place] where she was then transferred to [facility] in [place]. Pt denying speech therapy evaluation while she was admitted to the hospital. She reports this is her first evaluation with speech therapy. She has an appt scheduled with a neurologist next week. 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 She has a bachelor's degree in communication. She lives with her mom and 13 month old daughter. Medications related to this diagnosis: Lipitor Smoking Status: Current every day smoker Diagnosis Diagnosis: Mild-moderate expressive aphasia. Pain Is pain an issue with your current prescribed condition?: No Personal Preferred language: Malawian Patient Allergies Allergies Allergies: Allergies ibuprofen Allergy (Verified 01/21/24 07:45) Anaphylaxis Latex, Natural Rubber Allergy (Verified 01/21/24 07:45) Swelling venom-honey bee (bee venom (honey bee)) Allergy (Verified 01/21/24 07:45) Hives BDAE-3 [place] Diagnostic Aphasia Examination BDAE-3 Administered: Yes BDAE-3: The BDAE-3 assesses communication in the areas of: conversational and expository speech, auditory comprehension, oral expression, reading and writing. Date: 07/10/24 Severity Level: 3 Level Detail: The patient can discuss almost all everyday problems with little or no assistance. Reduction of speech an/or comprehension, however, makes conversation about certain material difficult or impossible. Rating Scale Profile of speech character Articulation Agility: 5 Detail: Facility at phoneme and syllable level ranges from 1 being unable to form speech sounds to 7 being never impaired Phrase length: 5 Detail: Longest occasional uninterrupted word runs Grammatical form: 6 Detail: Variety of grammatical constructions; use of grammatical mophemes: 1=nosyntactic word groupings ranging to 7 being normal range of syntax; normal facility with grammatical words Melodic Line (Prosody): 7 Detail: 1=word b word or aprosodic speech ranging to 7 being normal speech fariba Paraphasia in running speech: 5 Detail: 1 present in evrey utterance ranging to 7 s absent Word finding relative to fluency: 4 Detail: 1 is fluent but empty speech ranging to 7 as output primarily content words Summary Profile Conversation/Speech Simple social responses Percentile: 100 Summary Profile Auditory Comprehension Basic word discrimination Percentile: 100 Summary Profile Recitation Recitation automatized sequences Percentile: 100 Summary Profile Repitition Words Percentile: 60 (erred on the seven syllable phrase - Muslim Judaism) Sentences Percentile: 100 Summary Profile Naming Responsive Naming Percentile: 100 [place] Naming Test Percentile: 100 Special Categories Percentile: 100 Summary Profile Paraphasia Phonemic example- Stephan for [place]: 40 Verbal examples - for : 100 Neologistic - example planker for comb: 100 Multi-word: 100 Summary Profile Reading Matching cases and scripts: 100 Number matchin Picture - word matchin Oral word readin Oral sentence readin Oral sentence comprehension: 100 Sentences/Paragraph comprehension: 100 Summary Profile Writing Form: 40 Letter choice: 50 Motor faclility: 50 Primer words: 100 Regular phonics: 50 Common irregular words: 60 Written picture namin Narrative writin BDAE-3 Comments Item Analysis: -: Pt is demonstrating strengths with reading, comprehension, and naming. Areas of growth for Aisha include spelling, word finding during conversation and picture description tasks, and verbal expression of multisyllabic words/phrases. Aisha shows strengths with deficit awareness when she is writing and speaking via showing frustration when she notices an error along with attempts to self correct. She does abandon the task if she is unable to successfully spell or find the word she is wanting to say. Aisha also uses you know what I mean frequently to help her pull out of situations where it is difficult to find a word. Reference: Neuro-QoL instrument In past 7 days I had to read something several times to understand it: Rarely (once) My thinking was slow: Rarely (once) I had to work really hard to pay attention or i would make a mistake: Rarely (once) I had trouble concentrating: Rarely (once) How much DIFFICULTY do you currently reading & following complex instructions (e.g. directions for new medication: A little planning for & keeping appts that are not part of weekly routine: A little managing your time to do most of your daily activities: A little learning new tasks or instructions: A little Neuro-QOL Score Raw Score: 32 T - Score: 47.1 HDQLIFE - Speech Difficulties In the past 7 days. It was difficult for other people to understand me.: Rarely Is was difficult to speak clearly?: Sometimes In the past 7 days.. How often did you limit your social activites because you had difficulty speaking?: Sometimes In the past 7 days... I had trouble speaking.: Somewhat I was frustrated by my speech difficulties.: Quite a bit How much DIFFICULTY do you have... ...saying what you want to say?: Some difficulty Score HDQLIFE Speech Difficulties Raw Score: 18 HDQLIFE Speech Difficulties T - Score: 58 Radiation Oncology Patient Plan Plan Plan: Will recommend Pt for weekly outpatient speech therapy intervention address mild-moderate expressive aphasia. 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 He would benefit from circumlocution training, semantic features analysis training for verbal expression, and anagram/copy/recall treatment for spelling. Without skilled intervention Pt is at risk for difficulty returning to work where she is required to communicate medical needs of her patients, along with communicating her own medical, emergent, social wants & needs, and interacting with family/friends at home, during social interactions, and at work. Recommendations Treatment Warranted: Yes Treatment Warranted: Receptive/ Expressive Language Progress Prognosis: Good Frequency Frequency: 1x/Week Duration: 6 Months Patient/Family Goal Patient/Family Goal: To improve spelling and word finding Goals that are Established Determination:: Goals will be added/modified as deemed necessary and appropriate. Therapy will be discontinued when results of re-evaluation indicate therapy is no longer needed or lack of progress has been documented. Goal #1-5 Goal #1: In accordance with Anagram, Copy, and Recall Treatment (ACRT), Aisha will successfully form 85% of target words from anagram tasks when presented with scrambled letters (e.g., dog from odg) when given min verbal or visual prompts as needed, across 4 out of 5 sessions Goal #2: In accordance with Anagram, Copy, and Recall Treatment (ACRT), Aisha will accurately copy 85% of target words (e.g., cat, table, window) after unscrambling the letters, with minimal verbal cues, over 4 out of 5 sessions. Goal #3: In accordance with Anagram, Copy, and Recall Treatment (ACRT), Aisha will independently recall and write 80% of target words (e.g., dog, house, apple) from memory, without prompts, across 3 out of 4 sessions. Goal #4: Aisha will independently demonstrate use of word finding strategies to describe picture scenes progressing to conversation in 3 out of 4 word finding occurrences across 3 measured opportunities. Goal #5: Aisha will articulate multi-syllabic words at the word and phrase level with 90% acc given min tactile and verbal cues across 3 measured opportunities. Education Patient has Indicated that the Following Identified Educational Needs: None The Patient has indicated that they have no educational or learning abilities that may effect their care.: Yes Patient Instruction Patient Education: Diagnosis, Treatment Plan and Goals Person Taught: Patient Teaching Method: Discussion Response to teaching: Return Demonstration and Verbalize Understanding
== END 2024-09-11 19:00 | disposition home or self-care (01) ==
LOC: SP 09:00
PROVIDERS: PCP Family Medicine
DX: I69.320 Aphasia following cerebral infarction (principal)
CPT/HCPCS: 92507; 96105